=== PATIENT | female | born 1950 | race Caucasian/White ===

== ENCOUNTER 2022-02-06 15:35 | Emergency (ER) | payer OTHER, SELFPAY ==
[2022-02-06 15:57] VITALS: BP 166/74; PULSE 45; RESP 18; TEMP 36.4; O2SAT 100; BMI 28.0
[2022-02-06 17:05] VITALS: BP 148/78; PULSE 56; RESP 16; O2SAT 99
[2022-02-06 17:30] VITALS: BP 145/79; PULSE 48; RESP 16; O2SAT 99
--- NOTE | 2022-02-06 17:50 | ED.GENADULT ---
HPI - General Adult General Date Seen: 02/06/22 Chief complaint: Syncope/Fainted Stated complaint: Low HR Time Seen by Provider: 02/06/22 17:27 Source: patient History of Present Illness HPI narrative: Patient is referred here from urgent care for evaluation of near syncope and bradycardia. She tells me over the past month or so she has had a couple episodes of near-syncope, generally when she is standing at [employer]. She will start to feel kind of sweaty and lightheaded. She says that she has never had to sit down, she generally just puts up with the symptoms although this past Saturday she did leave mormonism. She has never fainted. She says that no one is ever commented that she looks pale, sweaty or otherwise abnormal. She never gets chest pain or short of breath, headache, or any other symptoms. She has not had any palpitations. She has never checked her pulse. She says over the past 6 months or so she has had a few episodes like this at work, always when she is standing. Symptoms will last 10 or 15 minutes and then resolved. She was noted to be bradycardic on her EKG at Urgent Care, heart rate of 47, sinus bradycardia. She was referred here for further evaluation. Urgent care, she also noted that she has had headache intermittently, but she did not endorse that symptom to me. She denies any vomiting or diarrhea, black or bloody stools. No fevers or cough. No other symptoms of illness. No unexpected weight loss. Related Data Home Medications Medication Instructions Recorded Confirmed alendronate 70 mg tablet tab PO 02/06/22 02/06/22 atenolol 25 mg tablet 25 mg PO QDAY tab 02/06/22 02/06/22 atorvastatin 20 mg tablet 20 mg PO QDAY tab 02/06/22 02/06/22 Previous Rx's Medication Instructions Recorded losartan 50 mg tablet 50 mg PO DAILY #14 tab 02/06/22 Allergies Allergy/AdvReac Type Severity Reaction Status Date / Time ampicillin Allergy Mild Hives Uncoded 02/06/22 14:14 Review of Systems Status of ROS: Reports: 10 or more systems reviewed and unremarkable except as noted in History and below PFSH PFSH Social History Smoking Status: Never smoker Do you use any of these nicotine containing products: None Second hand tobacco smoke exposure: No How often do you have a drink containing alcohol: never How often do you have six or more drinks on one occasion: Never AUDIT-C Alcohol total score: 0 Non-prescribed substance use: denies use Exam Narrative: Exam Narrative: Vital signs as noted above. In general, an alert, well-appearing patient. Head: Normocephalic, atraumatic. Eyes: Pupils are equal reactive. Extraocular movements are full. Conjunctivae are normal. ENT: Mucous membranes are moist. Throat is normal. Neck: Supple without lymphadenopathy. Heart: Bradycardic and regular. No murmur or rub. Lungs: Clear bilaterally. No increased work of breathing, crackles or wheezes. Abdomen: Soft and nontender. No organomegaly. Extremities: Well perfused. No edema. No calf tenderness. Pulses intact. Neurologic: Patient is alert and oriented to person and place. Speech is fluent. Face is symmetric. Moves all extremities equally. Affect: Normal. Skin: Warm and dry. Well perfused. Const: Vital Signs, click to edit/add: Vital Signs - 24 hr 02/06/22 15:57 02/06/22 17:05 02/06/22 17:30 Temperature 97.5 F L Pulse Rate [Right Pulse Oximeter] 45 L 56 L 48 L Respiratory Rate 18 16 16 Blood Pressure [Ri ght Upper Arm] 166/74 H 148/78 H 145/79 H Pulse Oximetry 100 99 99 02/06/22 18:00 02/06/22 18:30 Temperature Pulse Rate [Right Pulse Oximeter] 53 L 51 L Respiratory Rate 16 20 Blood Pressure [Ri ght Upper Arm] 126/67 128/68 Pulse Oximetry 98 99 Course Course Hospital Course: I reviewed the EKG from urgent care which showed a sinus bradycardia, ventricular rate of 47 beats per minute. I did note as the patient was on the monitor that her heart rate increases as she talks to me up to about 60 beats per minute. I reviewed labs from Urgent Care including a CBC and metabolic panel which are normal. A TSH was ordered that this is pending. Her blood pressures have been normal, she was hypertensive on arrival, blood pressure normalized to 128/68 on repeat. She at no time has shown any sign of hypotension. Overall, she has had several episodes of lightheadedness or near syncope over the past month. These may or may not be associated with bradycardia. However, given that she is on atenolol and is showing signs of bradycardia here I do think it is prudent to discontinue her atenolol it I am going to set up a Holter for her so that we can better assess whether not she symptomatic when she has more significant bradycardia. I will have her hold her atenolol for now and I am going to start her on losartan. I do not see any sign that this is associated with an ischemic cardiac event. She is asymptomatic right now. EKG shows no signs of ischemia. She has not had any syncope. No signs of heart block. I would like her to follow up with her primary doctor to see how she was doing in terms of the new blood pressure medicine and to review her Holter results. Discussed that if she were to develop any new symptoms such as chest pain, significant shortness of breath, fainting, that she should return to the emergency department. Vital Signs Vital signs: Initial Vital Signs Temperature 97.5 F L 02/06/22 15:57 Temperature Source Temporal Artery Scan 02/06/22 15:57 Pulse Rate 45 L 02/06/22 15:57 Respiratory Rate 18 02/06/22 15:57 Blood Pressure 166/74 H 02/06/22 15:57 Blood Pressure Mean 104 02/06/22 15:57 Blood Pressure Position Sitting 02/06/22 15:57 Pulse Oximetry 100 02/06/22 15:57 Oxygen Delivery Method 02/06/22 15:57 Vital Signs Temperature 97.5 F L 02/06/22 15:57 Pulse Rate 45 L 02/06/22 15:57 Respiratory Rate 18 02/06/22 15:57 Blood Pressure 166/74 H 02/06/22 15:57 Pulse Oximetry 100 02/06/22 15:57 Temperature 97.5 F L 02/06/22 15:57 Pulse Rate 51 L 02/06/22 18:30 Respiratory Rate 20 02/06/22 18:30 Blood Pressure 128/68 02/06/22 18:30 Pulse Oximetry 99 02/06/22 18:30 Discharge Plan Discharge Clinical Impression: Bradycardia, Pre-syncope Patient Disposition: Home, Self-Care Condition: Stable Instructions: Near Syncope (ED) Additional Instructions: Discontinue atenolol for now. Will start a new blood pressure medicine called losartan. Holter monitor. I would like you to follow-up with Dr. Wilson in the next week to discuss Holter results and to see how you are doing on the new blood pressure medicine. If you have worsening symptoms, fainting, chest pain, shortness of breath, or other significant symptoms, return at any time to the emergency department. Prescriptions: New losartan 50 mg tablet 50 mg PO DAILY Qty: 14 3RF No Action alendronate 70 mg tablet PO 0RF atorvastatin 20 mg tablet 20 mg PO QDAY 0RF atenolol 25 mg tablet 25 mg PO QDAY 0RF Label Comments: TAKE 1 TABLET (25 MG) BY MOUTH DAILY Follow Up/Referrals: Provider,Not a Local [Primary Care Provider] - Stand Alone Forms: [employer] Info Instructions
[2022-02-06 18:00] VITALS: BP 126/67; PULSE 53; RESP 16; O2SAT 98
[2022-02-06 18:30] VITALS: BP 128/68; PULSE 51; RESP 20; O2SAT 99
== END 2022-02-06 19:14 | disposition home or self-care (01) ==
LOC: ED 18:50
PROVIDERS: Emergency Provider Emergency Medicine
DX: R55 Syncope and collapse (principal); R00.1 Bradycardia, unspecified
CPT/HCPCS: 84443; 93225; 93226; 99284; 99285

== ENCOUNTER 2022-02-15 14:05 | Outpatient (CLI) | payer OTHER, SELFPAY ==
[2022-02-15 22:03] LABS: Chloride* 107 mmol/L (96-114)
[2022-02-15 22:04] LABS: Potassium* 4.9 mmol/L (3.6-5.1); Sodium* 139 mmol/L (135-149)
[2022-02-15 22:06] LABS: Creatinine* 0.7 mg/dL (0.5-1.5); Estimated Glomerular Filt Rate 93 ml/min
[2022-02-15 22:07] LABS: Blood Urea Nitrogen* 17 mg/dL (7-30); Calcium* 9.1 mg/dL (8.4-10.6); Carbon Dioxide* 26 mmol/L (20-32); Glucose* 103 mg/dL (60-115)
== END 2022-02-15 14:06 | disposition home or self-care (01) ==
LOC: LKVREF 14:06
PROVIDERS: Visit Provider Emergency Medicine
DX: I10 Essential (primary) hypertension (principal)
CPT/HCPCS: 80048

== ENCOUNTER 2022-06-01 11:16 | Outpatient (CLI) | payer MEDICARE, SELFPAY ==
[2022-06-01 12:38] LABS: Albumin* 4.2 g/dL (3.3-5.0); Chloride* 108 mmol/L (96-114)
[2022-06-01 12:39] LABS: Potassium* 4.2 mmol/L (3.6-5.1); Sodium* 140 mmol/L (135-149)
[2022-06-01 12:41] LABS: Carbon Dioxide* 29 mmol/L (20-32); Cholesterol* 142 mg/dL (90-199); Creatinine* 0.7 mg/dL (0.5-1.5); Estimated Glomerular Filt Rate 93 ml/min
[2022-06-01 12:42] LABS: Alanine Aminotransferase* 23 U/L (4-35); Alkaline Phosphatase* 80 U/L (40-150); Aspartate Amino Transferase* 25 U/L (12-35); Bilirubin Total* 0.7 mg/dL (0.1-1.5); Blood Urea Nitrogen* 17 mg/dL (7-30); Calcium* 9.2 mg/dL (8.4-10.6); Glucose* 85 mg/dL (60-115); HDL Cholesterol* 54 mg/dL (>=50); LDL Cholesterol Calculated 74 mg/dL (<100); Total Protein* 6.3 g/dL (6.0-8.3); Triglycerides* 69 mg/dL (40-149)
[2022-06-05 23:09] LABS: Vitamin D 25 Hydroxy* 35 ng/mL (30-80)
== END 2022-06-01 11:17 | disposition home or self-care (01) ==
PROVIDERS: PCP Emergency Medicine; Visit Provider Emergency Medicine
DX: Z00.00 Encounter for general adult medical examination without abnormal findings (principal); I10 Essential (primary) hypertension; E78.5 Hyperlipidemia, unspecified
CPT/HCPCS: 80053; 80061

== ENCOUNTER 2022-06-05 09:22 | Outpatient (CLI) | payer MEDICARE, SELFPAY | END 2022-06-05 09:23 | disposition home or self-care (01) | LOC: LKVREF 06-11 14:55 | PROVIDERS: PCP Emergency Medicine; Visit Provider Emergency Medicine | DX: Z00.00 Encounter for general adult medical examination without abnormal findings (principal); R53.83 Other fatigue; M81.0 Age-related osteoporosis without current pathological fracture; E78.5 Hyperlipidemia, unspecified; I10 Essential (primary) hypertension; E78.00 Pure hypercholesterolemia, unspecified | CPT/HCPCS: 82306 ==

== ENCOUNTER 2023-08-15 08:29 | Outpatient (CLI) | payer MEDICARE, SELFPAY | END 2023-08-15 08:30 | disposition home or self-care (01) | LOC: NFLDREF 08-16 06:25 | PROVIDERS: PCP Emergency Medicine; Referring Provider Emergency Medicine; Visit Provider Emergency Medicine | DX: E78.5 Hyperlipidemia, unspecified (principal); I10 Essential (primary) hypertension; M81.0 Age-related osteoporosis without current pathological fracture | CPT/HCPCS: 80053; 80061; 82306 ==

== ENCOUNTER 2023-11-13 14:42 | Outpatient (CLI) | payer MEDICARE, SELFPAY ==
--- NOTE | 2023-11-13 15:00 | MM_ITS ---
Patient: MOISES SAMPSON Facility:?[facility] Patient ID:?[id number] Site Patient ID:?[id number]. Site :?[id number] Study:?XRay-Breast Bilateral 3D W/CAD-11/13/2023 3:03:48 PM Ordering Physician:Day Roberts Final Report: BILATERAL SCREENING MAMMOGRAM WITH COMPUTER-AIDED DETECTION AND TOMOSYNTHESIS TECHNIQUE: CC and MLO views were obtained. These mammographic images have been obtained using full-field digital technique. These mammographic images were interpreted with the benefit of computer-aided detection. Breast Tomosynthesis was used in this interpretation. COMPARISON FILM: 06/03/19, 08/09/20, 12/29/21 FINDINGS: The breasts are heterogeneously dense, which may obscure small masses IMPRESSION: There is no radiographic evidence for malignancy. ASSESSMENT: BI-RADS Category 1: Negative RECOMMENDATION: Routine screening mammogram in 1 year. A lay language report of this examination will be provided to the patient. Riaz Gallegos M.D. Diagnostic Radiologist [email or web address] MARKIE/jose g Transcribed: 1:35 p.mNidia araiza/Dictated by: Riaz Gallegos MD @ 11/14/2023 12:55:00 PM Signed by:?Riaz Gallegos MD @11/14/2023 1:50:11 PM (Electronic Signature)
--- NOTE | 2023-11-13 15:30 | XR_ITS ---
Patient: MOISES SAMPSON Facility:?[facility] Patient ID:?[id number] Site Patient ID:?[id number]. Site :?1950 Study:?DEXA-Bone Density -11/13/2023 3:53:16 PM Ordering Physician:GLORIA Final Report: DXA BONE MINERAL DENSITY STUDY Reason for exam: Screening, age-related osteoporosis. Current height (in): 65. Weight (lb): 160. Menopause age: 53. Ethnicity: White. 1. Have you had a previous hip or vertebral fracture? No. 2. Have you had any fractures during your adult life which did not result from significant trauma (e.g., auto accident)? No. 3. Did either of your parents have a hip fracture? No. 4. Do you smoke? No. 5. Have you ever taken Glucocorticoids? No. 6. Do you have rheumatoid arthritis? No. 7. Do you have secondary osteoporosis? No. 8. Do you drink 3 or more alcoholic drinks per day? No. 9. Are you being treated for osteoporosis? Yes. 10. Have you ever taken any of the following medications: Actonel, Evista, Fosamax, Miacalcin, Reclast, Boniva, Forteo, HRT (i.e., estrogen/hormone therapy), Protelos, Prolia, Vitamin D, Calcium, other ? please specify. ANSWER: Yes, Fosamax (i.e., alendronate). 11. Do you have any of the following medical conditions: Anorexia or bulimia, asthma or emphysema, end stage renal disease, hyperparathyroidism, any seizure disorders, cancer, inflammatory bowel diseases, hysterectomy, other ? please specify. ANSWER: No. 12. What was your maximum height (inches)? 66. 13. Do you perform weight bearing exercise regularly? Yes. 14. Do you regularly consume dairy products? Yes. 15. Do you drink caffeinated beverages? Yes. 16. At what age did your period start? 13. 17. Are you premenopausal? No. 18. How many full-term pregnancies have you had? 0. 19. Have you ever missed your period for more than 6 months in a row (not including or menopause)? No. TECHNIQUE: Bone mineral density study was performed using the [employer]. FINDINGS: The results of the study expressed as bone mineral density (BMD) are as follows: Lumbar spine L.1 to L4: BMD: 0.708 g/cm2. T-score: -3.1. Z-score: -0.9 Neck Left: BMD: 0.536 g/cm2. T-score: -2.8. Z-score: -0.9 Right: BMD: 0.541 g/cm2. T-score: -2.8. Z-score: -0.9 Total Left: BMD: 0.739 g/cm2. T-score: -1.7. Z-score: -0.0 Right: BMD: 0.747 g/cm2. T-score: -1.6. Z-score: 0.0 IMPRESSION: Osteoporosis. *Comparison exams done prior to 12/2019 were performed on different unit, [email or web address]. COMPARISON: Compared with scan of 03/02/2021, the bone mineral density has increased by 5.1 percent at the spine and increased by 2.3 percent at the hip. NICHOLE AARON M.D. CORI:jose g D& Transcribed: 5:01 p.m. [email or web address] jose g/Dictated by: Nichole Aaron MD @ 11/14/2023 8:42:00 AM BHARTI/Dictated by: Nichole Aaron MD @ 11/14/2023 8:42:00 AM Signed by:Sandro Aaron MD @11/15/2023 10:22:25 AM (Electronic Signature)
== END 2023-11-13 14:43 | disposition home or self-care (01) ==
LOC: MAMMO 14:43
PROVIDERS: PCP Emergency Medicine; Visit Provider Emergency Medicine
DX: Z12.31 Encounter for screening mammogram for malignant neoplasm of breast (principal); R92.2 Inconclusive mammogram; Z13.820 Encounter for screening for osteoporosis; M81.0 Age-related osteoporosis without current pathological fracture
CPT/HCPCS: 77063; 77067; 77080

== ENCOUNTER 2024-10-23 08:40 | Outpatient (CLI) | payer OTHER, SELFPAY | END 2024-10-23 08:41 | disposition home or self-care (01) | LOC: NFLDREF 10-27 00:56 | PROVIDERS: PCP Emergency Medicine; Referring Provider Emergency Medicine; Visit Provider Emergency Medicine | DX: E78.5 Hyperlipidemia, unspecified (principal); I10 Essential (primary) hypertension; M81.0 Age-related osteoporosis without current pathological fracture | CPT/HCPCS: 80048; 80061; 82306 ==

== ENCOUNTER 2024-11-19 15:12 | Outpatient (CLI) | payer OTHER, SELFPAY | END 2024-11-19 15:13 | disposition home or self-care (01) | LOC: LKVREF 15:14 | PROVIDERS: PCP Emergency Medicine; Visit Provider Emergency Medicine | DX: R10.32 Left lower quadrant pain (principal); R19.7 Diarrhea, unspecified; R82.90 Unspecified abnormal findings in urine; Z13.810 Encounter for screening for upper gastrointestinal disorder | CPT/HCPCS: 82784; 86231; 86258; 86364; 87086 ==

== ENCOUNTER 2025-03-22 09:15 | Outpatient (RCR) | payer OTHER, SELFPAY ==
--- NOTE | 2024-12-15 15:45 | PT.OPEX ---
PT [place] Outpatient Eval PT [facility] Outpatient Eval Start: 11/18/24 08:39 Freq: Status: Active Protocol: Document 12/15/24 07:07 MLS (Rec: 12/15/24 15:44 MLS [id number]) E-signed By Sarah Figueroa DPT Physical Therapy Outpatient Evaluation Insurance Information Recert Due Date 03/14/25 Insurance Name Medicare B,[employer] Medical Diagnosis R32 unspecified urinary incontinence Treating Diagnosis Pelvic floor strengthening urge suppression Core work Referring MD Day Wilson Subjective Subjective Patient is a 74 year old female who presents to physical therapy with signs and symptoms consistent with urinary incontinence. She states that it has been going on with coughing and sneezing for a couple of years. She states that being sick and having a cold makes it worse. Urinary- Leakage (day/night): not really in evening, only day when cough or sneeze Freq of leakage: depends Protection worn: wears panty liner as precaution Severity of leakage (amount): small amount Activity that causes leakage (laughing, coughing, sneezing, dorman in door, running water etc): coughing, sneezing, dorman in door, just in case when wakes up in the evening Delay of urination: no, sometimes doesn't fully empty Urinary urgency (any incontinence): yes Strain to start/stop urine stream: no Hydration/fluid intake:32 oz or so water, 1 cup coffee (at work) or tea (michel dalal), no pop usually, sometimes flavored carbonated water Daytime urination (how often): 5-6 Nocturia: once Dysuria (pain w urination): no Post-void dribble: sometimes Pressure/heaviness: not significantly Triggers: cough, sneeze Observation (color, odor, burning, blood, weak stream): no Bowel- Frequency: once or twice a day [place] chart: 5-6 Constipation/Diarrhea: diarrhea about a couple years Observation (mucus. blood): no Do you feel bowels fully evacuate with BM: yes Fecal leakage: no Fecal urgency: no Protection used: no Straining with BM: no Pain with BM: left lower quadrant pain, dairy free for one month per physician, celiac test negative Do you use pressure with hands to assist with BM: no Flatus incontinence: some gassiness Abdominal/rectal pain or symptoms: left lower quadrant, intermittent, sharp and brief Do foods increase or decrease symptoms: no Do you take bowel supplements/laxatives: no Fiber intake: eats lots of fruit, sweet potatoes Diet/food intolerances: eating dairy free currently, some issues with reflux, stays away from strong lemonade, eating later in the day, in summer time sometimes doesn't eat until 9pm (can make reflux worse) , otherwise tries to be done around 6-7 Sexual- Are you sexually active: no Menstrual History- Date of last period: unsure Painful periods (clotting): major pain with periods, put on control pills when 19 due to pain, would vomit due to pain Menopause age: unsure - 1 Other- Pain with gynecological exam: no Any chronic yeast infections: no Chronic UTIs: no STIs: no Vaginal dryness: not really Meds taken for bladder or diuretics: no Surgical PMHx- no PMHx-osteoporosis, vertigo Current exercise- Pilates 4 times per month, walk dog every morning 1-1.5 miles per day Orthopedic issues- low back stiffness, knee pain going down stairs Pain Comments Today: 0/10 on a 0-10 pain scale with 10 = extreme pain 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 Precautions Weight Bearing Full Weight Bearing Status Therapy Limitations/ Not Limited Systems Review Objective Other/Pertinent Movement screen- Objective SLS: no pain Lumbar Posture: normal Pelvic Posture (ASIS/PSIS sup/inf, rotation Ant/Pst): normal Sacral Posture (forward/backward torsion): no Hip PROM: min dec IR B LUMBAR ROM: WNL, min dec, mod dec, sev dec Flexion: WNL Extension: min dec Right Sidebend: min dec Left Sidebend: min dec Right Rotation: min dec Left Rotation: min dec LE MMT Hip flexion: R 4+/5 L $+/5 Hip Extension: R 4+/5 L 4+/5 Hip abduction: R 4+/5 L 4+/5 knee extension: R 4+/5 L 4+/5 Knee Flexion: R 4+/5 L 4+/5 Other tests: Coordination: decreased contraction Breathing: chest/neck breathing. decreased posterior and lateral ribcage mvmt with inhalation SPECIAL TESTS Straight leg raise: no pain Crossed straight leg raise: no pain Slump test: neg B Quadrant test: neg B SI tests Distraction: WNL Compression: WNL Sacral Thrust: WNL Standing forward bend Test: equal movement HIP (R/L): ALANIS: min pos on R FADIR: neg B Bronson's Test: neg Posterior impingement Test: neg Epstein compression Test: neg Functional Test Pelvic Floor Questionnaire Performed & Score Bladder 9/34 Bowel 0/15 Prolapse 0/40 Sexual function Assessment Assessment/ Pt is a 74 year old female who presents with concerns Impression of urinary incontinence. Patient also has notable objective findings including limited ROM, tenderness to palpation, and decreased strength which are also likely contributing to the problem. Patient is a good candidate for skilled therapy to target deficits described above. Skilled PT intervention is necessary for use of therapeutic exercise manual therapy, neuromuscular re-education, gait training, and therapeutic activity. Functional impairments include difficulty with: standing, walking, exercising, coughing, sneezing and performing ADLS. See appropriate sections of PT eval for complete list of goals and POC . D/C plan and criteria is for pt to achieve the goals as listed below or until max rehab potential is met. Pt was agreeable with plan of care and goals established. Primary Functional standing Limitations walking exercising ADLs coughing sneezing Plan of Care Rehabilitation Good Potential Physical Therapy URINE INCONTINENCE / WEAKNESS GOALS Goals STG (within 4-6 weeks) 1) Pt will demonstrate proper coordination of motor recruitment patterns for PF then TA activation during isometric activation while maintaining diaphragmatic breathing pattern 2)Pt will recall at least 4 strategies to improve pressure management in order to reduce instances of incontinence outside PT sessions 3) Pt will report reduced urinary leakage episodes no more than once per day for improved health of vaginal tissues LTG (within 10-12 weeks) 1) Pt will demonstrate proper coordination of motor recruitment patterns for PF then TA activation during dynamic UE/LE movements in all postures while maintaining diaphragmatic breathing pattern 2)Pt will demonstrate ability to complete at least 10 quick contractions of PFM with full relaxation between reps in order to reduce incontinence with increases in IAP 3) Pt will demonstrate improved PFM contraction of at least 4/5 on Laycock scale 4) Pt will report reduced urinary leakage episodes no more than two per week for improved health of vaginal tissues 5)Pt will report absent urinary leakage with cough, sneeze, jump. 6) Pt will demonstrate PFQ subscale score 15> for improved quality of life. Coordination/ Referral Source Communication With Treatment Plan/ Biofeedback,Joint Mobilization,Manual Therapy, Direct Interventions Neuromuscular Re-ed,Therapeutic Activities,Therapeutic Exercises Patient Will Be Independently Progressing Discharged From Therapy Evaluation Billing Untimed Code 45 Treatment Minutes Complexity Low Certification Information Provider Signature Yes Required Provider Signature POC & Medical Necessity Shows Agreement With Physician NPI Number Write NPI# Here Physician Comment/ : Change Physician Signature Please Sign/Date Here & Date Requested
== END 2025-05-17 16:44 | disposition home or self-care (01) ==
PROVIDERS: Visit Provider Emergency Medicine
DX: R32 Unspecified urinary incontinence (principal); Z51.89 Encounter for other specified aftercare
CPT/HCPCS: 97110; 97161; 97530

== ENCOUNTER 2025-03-30 09:34 | Outpatient (CLI) | payer OTHER, SELFPAY ==
--- NOTE | 2025-03-30 10:00 | CRLHL7_ITS ---
For Patients: As a result of the Century Cures Act, medical imaging exams and procedure reports are released immediately into your electronic medical record. You may view this report before your referring provider. If you have questions, please contact your health care provider. Indication: Diarrhea Technique: CT Abdomen/Pelvis 79CC ISOVUE 370 intravenous contrast Please note that all CT scans at this facility use dose modulation, iterative reconstruction, and/or weight-based dosing when appropriate to reduce radiation dose to as low as reasonably achievable. Comparison: 02/14/2017 Findings: Calcified granuloma within the left lung base. Mild dependent atelectasis. Normal liver and gallbladder. Calcified splenic granulomas. Adrenal glands normal. Kidneys unremarkable. Normal pancreas. Atherosclerotic changes. No aneurysm. Bladder normal. Normal uterus and ovaries. No bowel obstruction or free air. No free fluid. No bowel wall thickening. Small bowel loops are unremarkable. Degenerative disc disease at L3-4 and L5-S1. No vertebral body compression fracture. No adenopathy. The appendix is normal. Terminal ileum within normal limits. Incidental bone island within the right proximal femur. Impression: No bowel obstruction or evidence of colitis/enteritis. No inflammatory bowel disease. Please note that all CT scans at this facility use dose modulation, iterative reconstruction, and/or weight-based dosing when appropriate to reduce radiation dose to as low as reasonably achievable. Dictated by Riaz Gallegos MD @ 03/30/2025 12:42:52 PM (Electronically Signed)
[2025-03-30 10:11] LABS: Creatinine* 0.7 mg/dL (0.5-1.5); Estimated Glomerular Filt Rate 91 ml/min
== END 2025-03-30 09:35 | disposition home or self-care (01) ==
LOC: CT 09:35
PROVIDERS: Visit Provider Physician Assistant Medical
DX: R19.7 Diarrhea, unspecified (principal); R10.32 Left lower quadrant pain
CPT/HCPCS: 36415; 74177; 82565; Q9967

== ENCOUNTER 2025-04-27 08:42 | Outpatient (CLI) | payer OTHER, SELFPAY ==
--- NOTE | 2025-04-27 09:46 | P.ANES_ITS ---
Anesthesia Charges Start Date/Time Anesthesia Start Date: 04/27/25 Anesthesia Start Time: 09:20 Stop Date/Time Anesthesia Stop Date: 04/27/25 Anesthesia Stop Time: 09:45 Summary Extremes of Age - Over 70 or under 1: PHARMACY TECHNICIAN PER DIEM Coding CPT Codes CPT Codes: ANES LWR INTST SCR COLSC - 33786 ([id number]) P2 - PATIENT W/MILD SYST DISEASE, QK - CHILD CARE CENTRE MANAGER 2-4 CNCRNT ANES PROC, QX - PHARMACY TECHNICIAN PER DIEM SVC W/ MD MED DIRECTION Additional Codes: Summary - Extremes of Age - Over 70 or under 1: PHARMACY TECHNICIAN PER DIEM ([id number])
--- NOTE | 2025-04-27 09:46 | W.ANESCHARGE ---
Anesthesia Charges Start Date/Time Anesthesia Start Date: 04/27/25 Anesthesia Start Time: 09:20 Stop Date/Time Anesthesia Stop Date: 04/27/25 Anesthesia Stop Time: 09:45 Summary Extremes of Age - Over 70 or under 1: GEOLOGICAL SAMPLE TESTER Coding CPT Codes CPT Codes: ANES LWR INTST SCR COLSC - 55414 ([id number]) P2 - PATIENT W/MILD SYST DISEASE, QK - ENGINEERING OFFICER 2-4 CNCRNT ANES PROC, QX - GEOLOGICAL SAMPLE TESTER SVC W/ MD MED DIRECTION Additional Codes: Summary - Extremes of Age - Over 70 or under 1: GEOLOGICAL SAMPLE TESTER ([id number])
--- NOTE | 2025-04-27 10:02 | P.ANES_ITS ---
Anesthesia Charges Start Date/Time Anesthesia Start Date: 04/27/25 Anesthesia Start Time: 09:20 Stop Date/Time Anesthesia Stop Date: 04/27/25 Anesthesia Stop Time: 09:45 Summary Extremes of Age - Over 70 or under 1: MDA Coding CPT Codes CPT Codes: ANES LWR INTST SCR COLSC - 59144 ([id number]) P2 - PATIENT W/MILD SYST DISEASE, QK - METAL CAN INSPECTOR 2-4 CNCRNT ANES PROC, QX - CNS SVC W/ MD MED DIRECTION Additional Codes: Summary - Extremes of Age - Over 70 or under 1: MDA ([id number])
--- NOTE | 2025-04-27 10:02 | W.ANESCHARGE ---
Anesthesia Charges Start Date/Time Anesthesia Start Date: 04/27/25 Anesthesia Start Time: 09:20 Stop Date/Time Anesthesia Stop Date: 04/27/25 Anesthesia Stop Time: 09:45 Summary Extremes of Age - Over 70 or under 1: MDA Coding CPT Codes CPT Codes: ANES LWR INTST SCR COLSC - 75927 ([id number]) P2 - PATIENT W/MILD SYST DISEASE, QK - MEDICAL EDUCATOR 2-4 CNCRNT ANES PROC, QX - BRUSH CLEARING LABORER SVC W/ MD MED DIRECTION Additional Codes: Summary - Extremes of Age - Over 70 or under 1: MDA ([id number])
== END 2025-04-27 08:43 | disposition home or self-care (01) ==
LOC: OP CLINIC 08:44
PROVIDERS: Visit Provider Internal Medicine
DX: Z12.11 Encounter for screening for malignant neoplasm of colon (principal); R19.7 Diarrhea, unspecified
CPT/HCPCS: 00812; 45378; 99100; J2704

== ENCOUNTER 2025-05-07 11:29 | Outpatient (CLI) | payer OTHER, SELFPAY | END 2025-05-07 11:30 | disposition home or self-care (01) | LOC: NFLDREF 05-08 20:32 | PROVIDERS: Visit Provider Family Medicine | DX: Z00.00 Encounter for general adult medical examination without abnormal findings (principal) | CPT/HCPCS: 80053 ==

== ENCOUNTER 2025-06-14 12:45 | Outpatient (CLI) | payer OTHER, SELFPAY ==
--- NOTE | 2025-06-14 13:00 | CRLHL7_ITS ---
For Patients: As a result of the Century Cures Act, medical imaging exams and procedure reports are released immediately into your electronic medical record. You may view this report before your referring provider. If you have questions, please contact your health care provider. INDICATION: Dizziness. TECHNIQUE: Noncontrast Sagittal T1,Axial FSE T2, Flair, DWI images submitted. Compared to prior study from September 23, 2017 FINDINGS: Mild cerebral atrophy. The ventricles, sulci and gyri are of normal size, shape and contour for age and degree of atrophy. Midline structures are centrally located. No convincing evidence of suspicious intra- or extra-axial fluid collections. Stable moderate patchy regions of increased T2 signal within the periventricular and subcortical white matter of both cerebral hemispheres. No regions of restricted diffusion. IMPRESSION: 1. No radiographic evidence of acute intracranial abnormalities. 2. Mild cerebral atrophy. 3. Stable moderate supratentorial white matter changes that are non-specific, but statistically most likely related to chronic small vessel ischemic disease. Dictated by Mj Bryant MD @ 06/14/2025 6:38:00 PM (Electronically Signed)
== END 2025-06-14 12:46 | disposition home or self-care (01) ==
LOC: MRI 12:46
PROVIDERS: Visit Provider Family Medicine
DX: R42 Dizziness and giddiness (principal); G31.9 Degenerative disease of nervous system, unspecified; I67.82 Cerebral ischemia; R90.82 White matter disease, unspecified
CPT/HCPCS: 70551

== ENCOUNTER 2025-06-26 10:03 | Outpatient (CLI) | payer OTHER, SELFPAY | END 2025-06-26 10:04 | disposition home or self-care (01) | LOC: LKVREF 10:03 | PROVIDERS: Visit Provider Family Medicine | DX: N39.0 Urinary tract infection, site not specified (principal); R35.0 Frequency of micturition | CPT/HCPCS: 87086 ==